=== PATIENT | female | born 2000 | race Asian ===

== ENCOUNTER 2020-02-29 14:06 | Emergency (ER) | payer BC ==
[2020-02-29 14:14] VITALS: BP 129/91; PULSE 115; RESP 16; TEMP 98.6
--- NOTE | 2020-02-29 15:00 | ED ---
General Adult HPI - General Chief complaint: ENT Stated complaint: difficulty breathing/hard time swallowing Time Seen by Provider: 02/29/20 14:16 Source: patient Mode of arrival: wheelchair Limitations: no limitations - History of Present Illness Initial comments: Patient is a 19-year-old female presenting to the emergency Department with complaints of progressive increase of swallowing foods for the past week. Patient was recently diagnosed with a chest mass that they're considering a thymoma versus lymphoma. Patient has been dealing with upper respiratory type symptoms and chest congestion since November and finally had a chest x-ray performed on February 20 which revealed a large mass. Patient then had a CT of the chest with contrast 2 days later and shows a large mass within the superior mediastinum. Patient does have an appointment with a thoracic surgeon from [facility] on Wednesday. She presents today for having an increase in trouble swelling. Foods. She is only been able to swallow liquids and very slowly. She continues to have a very hoarse voice has been present since November. She denies any recent fever, chills. She states she is able to breathe okay with some mild shortness of breath when she is trying to do certain activities. She denies any nausea, vomiting, diarrhea, abdominal pain, headaches, dizziness. She has no further complaints at this time. Review of Systems ROS Statement: Those systems with pertinent positive or pertinent negative responses have been documented in the HPI. ROS Other: All systems not noted in ROS Statement are negative. Past Medical History Additional Past Medical History / Comment(s): [place] History of Any Multi-Drug Resistant Organisms: None Reported Past Surgical History: No Surgical Hx Reported Past Psychological History: No Psychological Hx Reported Smoking Status: Never smoker Past Alcohol Use History: None Reported Past Drug Use History: None Reported General Exam - General Exam Comments Initial Comments: GENERAL: Well-appearing, well-nourished and in no acute distress. HEAD: Atraumatic, normocephalic. EYES: Pupils equal round and reactive to light, extraocular movements intact, sclera anicteric, conjunctiva are normal. ENT: TMs normal, nares patent, oropharynx clear without exudates. Moist mucous membranes. NECK: Normal range of motion, supple without lymphadenopathy or JVD. LUNGS: Breath sounds clear to auscultation bilaterally and equal. No wheezes rales or rhonchi. HEART: Regular rate and rhythm without murmurs, rubs or gallops. ABDOMEN: Soft, nontender, normoactive bowel sounds. No guarding, no rebound. No masses appreciated. : Deferred EXTREMITIES: Normal range of motion, no pitting or edema. No clubbing or cyanosis. NEUROLOGICAL: Normal speech, normal gait. PSYCH: Normal mood, normal affect. SKIN: Warm, Dry, normal turgor, no rashes or lesions noted. Limitations: no limitations Course Vital Signs 02/29/20 14:10 Temperature 98.6 F Pulse Rate 115 H Respiratory 16 Rate Blood Pressure 129/91 O2 Sat by Pulse 98 Oximetry Medical Decision Making - Medical Decision Making Patient is a 19-year-old female here for a progressive increase in trouble swallowing. Patient has recent chest x-ray and CT of the chest performed at another hospital that shows a large mass within the superior mediastinum, differentials include lymphoma, thymoma. Patient does have an appointment with a thoracic surgeon from [facility] on Wednesday. Patient's lung yanez sound normal. Patient has been in the room, comfortable, no trouble breathing. Soft tissue x-ray of the neck shows a patent airway, soft tissue structures within normal limits, as well as prominence of the upper mediastinum. Discussed these findings with the patient and the patient's mother. We discussed continuing with liquid diet as well as very soft foods. Patient is comfortable with being discharged and will follow up with her surgeon on Wednesday. Return parameters were discussed with the patient and the patient's mother and they both verbalized understanding. Case discussed with Dr. Mccarty. Disposition Clinical Impression: Mass of mediastinum, Trouble swallowing Disposition: HOME SELF-CARE Condition: Stable Instructions (If sedation given, give patient instructions): Full Liquid Diet (DC) Additional Instructions: Please return to the Emergency Department if symptoms worsen or any other concerns. Continue with liquid diet, very soft foods. Follow up with surgeon on Wednesday as discussed. Is patient prescribed a controlled substance at d/c from ED?: No Referrals: Freddy Benítez MD [Primary Care Provider] - 1-2 days
--- NOTE | 2020-02-29 15:15 | XR ---
EXAMINATION TYPE: XR soft tissue neck DATE OF EXAM: 02/29/2020 COMPARISON: NONE HISTORY: Difficulty swallowing TECHNIQUE: 2 views submitted FINDINGS: Prevertebral soft tissue structures within normal limits. Epiglottis normal. Visualized osseous structures intact. There is marked prominence of the upper medi astinum. IMPRESSION: 1. Airway appears patent. However, there is marked prominence of the upper mediastinum CT of the neck and chest is recommended.
== END 2020-02-29 15:39 | disposition home or self-care (01) ==
LOC: EC 14:06
DX: J98.59 Other diseases of mediastinum, not elsewhere classified (principal); R13.10 Dysphagia, unspecified; R06.00 Dyspnea, unspecified; R09.89 Other specified symptoms and signs involving the circulatory and respiratory systems; Z85.238 Personal history of other malignant neoplasm of thymus
CPT/HCPCS: 70360; 99284

== ENCOUNTER 2020-06-10 12:24 | Emergency (ER) | payer BC, OTHER ==
[2020-06-10] MEDS ORDERED: SODIUM CHLORIDE 0.9% 1,000 ML IV STA (13:11)
[2020-06-10] MEDS ORDERED: CEFEPIME 2 GM in SODIUM CHLORIDE 0.9% 100 ML IVPB STA (13:36)
--- NOTE | 2020-06-10 14:21 | ED ---
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 Patient receives her care at [facility]. Recently had a port placed last week in her right chest wall. She sees Dr. Matthew out of [facility]. She currently received her fourth cycle of chemotherapy listed as 06/03/2020 (rituximab). Was on Bactrim this weekend after she received her treatment. Reports that yesterday she began having epigastric abdominal pain which radiates around her back. She has been taking Motrin Tylenol alternating for her fevers. Also reports to a productive cough. Similar symptoms were seen and her sister. She has been tested for Covid before each chemo treatment and reports that his been negative each time. Denies previous abdominal surgeries. No ripping or tearing sensation to her back. Denies any nausea or vomiting. No diarrhea, constipation, melenic stools or hematochezia. Has not had a menstrual cycle in 1 year due to hormonal treatment. No abnormal vaginal discharge. No previous abdominal surgeries. No other alleviating, Percepting or modifying factors - Related Data Allergies Allergy/AdvReac Type Severity Reaction Status Date / Time No Known Allergies Allergy Verified 06/10/20 12:40 Review of Systems ROS Statement: Those systems with pertinent positive or pertinent negative responses have been documented in the HPI. ROS Other: All systems not noted in ROS Statement are negative. Past Medical History Past Medical History: Cancer Additional Past Medical History / Comment(s): [place], B-cell lyphoma. History of Any Multi-Drug Resistant Organisms: None Reported Past Surgical History: No Surgical Hx Reported Additional Past Surgical History / Comment(s): port to right chest. Past Psychological History: No Psychological Hx Reported Smoking Status: Current every day smoker Past Alcohol Use History: None Reported Past Drug Use History: None Reported General Exam Limitations: no limitations General appearance: alert, in no apparent distress Head exam: Present: atraumatic, normocephalic, normal inspection Eye exam: Present: normal appearance, PERRL, EOMI. Absent: scleral icterus, conjunctival injection, periorbital swelling ENT exam: Present: normal exam, mucous membranes moist, other (nasal congestion) Neck exam: Present: normal inspection. Absent: tenderness, meningismus, lymphadenopathy Respiratory exam: Present: normal lung sounds bilaterally. Absent: respiratory distress, wheezes, rales, rhonchi, stridor Cardiovascular Exam: Present: normal rhythm, tachycardia, normal heart sounds. Absent: systolic murmur, diastolic murmur, rubs, gallop, clicks GI/Abdominal exam: Present: soft, tenderness (epigastric ), normal bowel sounds. Absent: distended, guarding, rebound, rigid Extremities exam: Present: normal inspection, full ROM, normal capillary refill. Absent: tenderness, pedal edema, joint swelling, calf tenderness Back exam: Present: normal inspection Neurological exam: Present: alert, oriented X3, CN II-XII intact Psychiatric exam: Present: normal affect, normal mood Skin exam: Present: warm, dry, intact, normal color. Absent: rash Course Vital Signs 06/10/20 06/10/20 06/10/20 12:35 15:29 18:31 Temperature 100.6 F H 99.8 F H Pulse Rate 121 H 110 H 86 Respiratory 18 16 16 Rate Blood Pressure 105/73 106/69 112/76 O2 Sat by Pulse 100 100 96 Oximetry - Reevaluation(s) Reevaluation #1: Pediatric oncology fellow has been paged 06/10/20 16:35 Medical Decision Making - Medical Decision Making Upon arrival the patient is placed into room 24. A thorough history and physical exam was performed. Patient is febrile upon presentation with 100.6 temp. I did discuss the case with the pediatric hematology oncology nurse on- call. They did transfer the protocol for febrile neutropenia. The patient's port was accessed. We did obtain blood cultures. Laboratory studies were conducted. She is complaining of epigastric abdominal pain and therefore was given 1500 mL bolus of normal saline and 1000 mg of Tylenol. Patient was also covered with 2 g of cefepime. Ever tracers remarkable for a white count of 0.2. Hemoglobin 9.5. Platelets of 56. He wrecked approaching 159. Urinalysis shows 1+ ketones with rare bacteria. Chest x-ray was performed because of the patient's upper respiratory symptoms which is clear for any infection area and ultrasound of the patient's abdomen demonstrates no significant abnormalities. CT of the patient's abdomen and pelvis demonstrates some minimal patchy densities noted in the posterior right lung base. Retained fecal debris throughout distributional the right colon. The patient is reevaluated. Does have improvement in her heart rate and temp. Pain has been improved. I did discuss the diagnosis, differential and treatment options. I did recommend hospital admission for neutropenic fever. Mother does request that the patient be transferred to [facility] as this is where he receives his care. I did page the on-call hematology/oncology fellow. I also called and discussed the case with Dr. Lang, the ER doc in the emergency room and who accepts transfer the patient. He would like the patient be a direct admission. The ine is made aware of this. The pediatric heme/onc fellow does call me back and I discussed the case with him. Patient will be transferred by ambulance. She did remain in stable condition and was transported - Lab Data Result diagrams: 06/10/20 13:17 06/10/20 13:17 Lab Results 06/10/20 06/10/20 06/10/20 Range/Units 13:17 13:17 13:17 WBC 0.2 L* (4.0-11.0) k/uL RBC 3.08 L (3.80-5.40) m/uL Hgb 9.5 L (11.4-16.0) gm/dL Hct 27.9 L (34.0-46.0) % MCV 90.6 (80.0-100.0) fL MCH 30.7 (25.0-35.0) pg MCHC 33.9 (31.0-37.0) g/dL RDW 14.8 (11.5-15.5) % Plt Count 56 L (150-450) k/uL Differential Comment Manual Slide Review Performed PT 11.3 (9.0-12.0) sec INR 1.1 (<1.2) APTT 30.3 H (22.0-30.0) sec Sodium (137-145) mmol/L Potassium (3.5-5.1) mmol/L Chloride (98-107) mmol/L Carbon Dioxide (22-30) mmol/L Anion Gap mmol/L BUN (7-17) mg/dL Creatinine (0.52-1.04) mg/dL Est GFR (CKD-EPI)AfAm (>60 ml/min/1.73 sqM) Est GFR (CKD-EPI)NonAf (>60 ml/min/1.73 sqM) Glucose (74-99) mg/dL Plasma Lactic Acid Filiberto (0.7-2.0) mmol/L Calcium (8.4-10.2) mg/dL Total Bilirubin (0.2-1.3) mg/dL AST (14-36) U/L ALT (4-34) U/L Alkaline Phosphatase (38-126) U/L C-Reactive Protein (<10.0) mg/L Total Protein (6.3-8.2) g/dL Albumin (3.5-5.0) g/dL Lipase (23-300) U/L Urine Color Yellow Urine Appearance Cloudy H (Clear) Urine pH 8.5 H (5.0-8.0) Ur Specific [place] 1.030 (1.001-1.035) Urine Protein 2+ H (Negative) Urine Glucose (UA) Negative (Negative) Urine Ketones 1+ H (Negative) Urine Blood Negative (Negative) Urine Nitrite Negative (Negative) Urine Bilirubin Negative (Negative) Urine Urobilinogen 2.0 (<2.0) mg/dL Ur Leukocyte Esterase Negative (Negative) Urine RBC 2 (0-5) /hpf Urine WBC 3 (0-5) /hpf Ur Squamous Epith Cells 3 (0-4) /hpf Urine Bacteria Rare H (None) /hpf Urine Mucus Few H (None) /hpf Urine HCG, Qual (Not Detectd) 06/10/20 06/10/20 06/10/20 Range/Units 13:17 13:17 13:17 WBC (4.0-11.0) k/uL RBC (3.80-5.40) m/uL Hgb (11.4-16.0) gm/dL Hct (34.0-46.0) % MCV (80.0-100.0) fL MCH (25.0-35.0) pg MCHC (31.0-37.0) g/dL RDW (11.5-15.5) % Plt Count (150-450) k/uL Differential Comment Manual Slide Review PT (9.0-12.0) sec INR (<1.2) APTT (22.0-30.0) sec Sodium 134 L (137-145) mmol/L Potassium 4.2 (3.5-5.1) mmol/L Chloride 99 (98-107) mmol/L Carbon Dioxide 25 (22-30) mmol/L Anion Gap 10 mmol/L BUN 11 (7-17) mg/dL Creatinine 0.76 (0.52-1.04) mg/dL Est GFR (CKD-EPI)AfAm >90 (>60 ml/min/1.73 sqM) Est GFR (CKD-EPI)NonAf >90 (>60 ml/min/1.73 sqM) Glucose 101 H (74-99) mg/dL Plasma Lactic Acid Filiberto 1.1 (0.7-2.0) mmol/L Calcium 9.0 (8.4-10.2) mg/dL Total Bilirubin 0.9 (0.2-1.3) mg/dL AST 18 (14-36) U/L ALT 21 (4-34) U/L Alkaline Phosphatase 63 (38-126) U/L C-Reactive Protein 159.1 H (<10.0) mg/L Total Protein 6.6 (6.3-8.2) g/dL Albumin 4.2 (3.5-5.0) g/dL Lipase 31 (23-300) U/L Urine Color Urine Appearance (Clear) Urine pH (5.0-8.0) Ur Specific [place] (1.001-1.035) Urine Protein (Negative) Urine Glucose (UA) (Negative) Urine Ketones (Negative) Urine Blood (Negative) Urine Nitrite (Negative) Urine Bilirubin (Negative) Urine Urobilinogen (<2.0) mg/dL Ur Leukocyte Esterase (Negative) Urine RBC (0-5) /hpf Urine WBC (0-5) /hpf Ur Squamous Epith Cells (0-4) /hpf Urine Bacteria (None) /hpf Urine Mucus (None) /hpf Urine HCG, Qual Not Detected (Not Detectd) - EKG Data EKG Comments: EKG demonstrates sinus tachycardia with a ventricular rate of 1:15. WI interval 132. QRS 80. QTC of 431. Inverted T-wave lead 3. No acute ST segment elevations. Disposition Clinical Impression: Abdominal pain, Fever, Pancytopenia, Chemotherapy induced neutropenia Disposition: OTHER INSTITUTION NOT DEFINED Condition: Serious Is patient prescribed a controlled substance at d/c from ED?: No Referrals: Freddy Benítez MD [Primary Care Provider] - 1-2 days - Out of Hospital Transfer - Req. Specs Out of Hospital Transfer - Requested Specifics: Other Non-Acute ([facility] - direct admission)
[2020-06-10 14:25] LABS: HCT 27.9 % (34.0-46.0); HGB 9.5 gm/dL (11.4-16.0); MCH 30.7 pg (25.0-35.0); MCHC 33.9 g/dL (31.0-37.0); MCV 90.6 fL (80.0-100.0); Mean Platelet Volume 8.1; RBC 3.08 m/uL (3.80-5.40); RDW 14.8 % (11.5-15.5)
[2020-06-10 14:30] LABS: WBC 0.2 k/uL (4.0-11.0)
--- NOTE | 2020-06-10 14:33 | XR ---
EXAMINATION TYPE: XR chest 2V DATE OF EXAM: 06/10/2020 COMPARISON: NONE TECHNIQUE: PA and lateral views submitted. HISTORY: cough FINDINGS: The lungs are clear and there is no pneumothorax, pleural effusion, or focal pneumonia. [facility] mahad venegas noted. IMPRESSION: 1. No acute process.
[2020-06-10 14:37] LABS: ALT 21 U/L (4-34); AST 18 U/L (14-36); African American GFR (CKD) >90 (>60 ml/min/1.73 sqM); Albumin 4.2 g/dL (3.5-5.0); Alkaline Phosphatase 63 U/L (38-126); Anion Gap 10 mmol/L; Blood Urea Nitrogen 11 mg/dL (7-17); Carbon Dioxide 25 mmol/L (22-30); Chloride 99 mmol/L (98-107); Glucose 101 mg/dL (74-99); Lipase 31 U/L (23-300); Non-African American GFR(CKD) >90 (>60 ml/min/1.73 sqM); Potassium 4.2 mmol/L (3.5-5.1); Sodium 134 mmol/L (137-145); Total Bilirubin 0.9 mg/dL (0.2-1.3); Total Protein 6.6 g/dL (6.3-8.2)
[2020-06-10 14:46] LABS: Platelet Count 56 k/uL (150-450)
[2020-06-10 14:57] LABS: C Reactive Protein 159.1 mg/L (<10.0)
[2020-06-10 14:59] LABS: INR 1.1 (<1.2); Partial Thromboplastin Time 30.3 sec (22.0-30.0); Prothrombin Time 11.3 sec (9.0-12.0)
[2020-06-10] MEDS ORDERED: ACETAMINOPHEN TAB 500 MG TAB PO STA (15:15)
[2020-06-10 15:32] VITALS: RESP 16; TEMP 99.8
--- NOTE | 2020-06-10 15:42 | US ---
EXAMINATION TYPE: US abdomen limited DATE OF EXAM: 06/10/2020 COMPARISON: NONE CLINICAL HISTORY: right upper quadrant pain. History of thymoma, b-cell lymphoma EXAM MEASUREMENTS: Liver Length: 13.8 cm Gallbladder Wall: 0.2 cm CBD: 0.2 cm Right Kidney: 9.9 x 4.0 x 4.6 cm Pancreas: Obscured by bowel gas Liver: No evident mass. Gallbladder: wnl Evidence for sonographic Arenas's sign: No CBD: wnl as visualized Right Kidney: No hydronephrosis or masses seen IMPRESSION: Exam is limited. No significant abnormalities evident.
[2020-06-10 15:54] LABS: Appearance,Urine Cloudy (Clear); Bacteria,Urine Rare /hpf; Bilirubin,Urine Negative (Negative); Blood,Urine Negative (Negative); Color,Urine Yellow; Glucose,Urine (UA) Negative (Negative); Ketones,Urine 1+ (Negative); Leukocyte Esterase,Urine Negative (Negative); Mucus,Urine Few /hpf; Nitrite,Urine Negative (Negative); PH, Urine 8.5 (5.0-8.0); Protein,Urine 2+ (Negative); RBC,Urine 2 /hpf (0-5); Squamous Epithelial Cell,Urine 3 /hpf (0-4); WBC,Urine 3 /hpf (0-5)
[2020-06-10] MEDS ORDERED: SODIUM CHLORIDE 0.9% 500 ML 500 ML IV ONE (15:56)
--- NOTE | 2020-06-10 16:23 | CT ---
EXAMINATION TYPE: CT abdomen pelvis w con DATE OF EXAM: 06/10/2020 COMPARISON: Ultrasound same date HISTORY: Abdominal pain radiating into back, fever and cough. Hx of B cell lymphoma. Recent port plac ed x2 weeks ago. CT DLP: 873.8 mGycm Automated exposure control for dose reduction was used. TECHNIQUE: Helical acquisition of images from the lung bases through the pelvis have been completed. CONTRAST: Performed without Oral Contrast and with IV Contrast, patient injected with 100ml mL of Isovue 300. FINDINGS: Along the anterior abdominal wall there is some increased attenuation, skin thickening poss ibly due to subcutaneous injections LUNG BASES: Minimal patchy density noted on image #1 and 2 the posterior right lung base is of questi onable clinical significance in the posterior lung base. AORTA: No significant abnormality is appreciated. LIVER/GB: No significant abnormality is appreciated. PANCREAS: No significant abnormality is seen. SPLEEN: No significant abnormality is seen. ADRENALS: No significant abnormality is seen. KIDNEYS: No significant abnormality is seen. REPRODUCTIVE ORGANS: No significant abnormality is seen BOWEL: Retained fecal debris is present throughout the distribution of the right colon, the appendix is unremarkable. FREE AIR: No Free Air visible. ASCITES: None visible. PELVIC ADENOPATHY: None visualized. RETROPERITONEAL ADENOPATHY: No Retroperitoneal Adenopathy visible. URINARY BLADDER: No significant abnormality is seen. OSSEOUS STRUCTURES: No significant abnormality is seen. IMPRESSION: NONSPECIFIC FINDINGS OF QUESTIONABLE CLINICAL SIGNIFICANCE
[2020-06-10 18:33] VITALS: BP 112/76; PULSE 86
== END 2020-06-10 18:31 | disposition other institution (70) ==
LOC: EC 12:24
DX: C85.10 Unspecified B-cell lymphoma, unspecified site (principal); D70.1 Agranulocytosis secondary to cancer chemotherapy; R50.81 Fever presenting with conditions classified elsewhere; J98.4 Other disorders of lung; K59.00 Constipation, unspecified; F17.200 Nicotine dependence, unspecified, uncomplicated; Z95.828 Presence of other vascular implants and grafts
CPT/HCPCS: 99285; 96365; 36415; 93005; 80053; 83605; 83690; 85025; 85610; 85730; 86140; 81001; 81025; 87040; 71046; 76705; 74177; J0692; Q9967

== ENCOUNTER 2023-06-10 20:44 | Emergency (ER) | payer BC, OTHER ==
[2023-06-10 22:05] VITALS: TEMP 98.5
--- NOTE | 2023-06-10 23:06 | ED ---
General Adult HPI - General Chief complaint: Vaginal Bleeding Stated complaint: On period for 6 months Time Seen by Provider: 06/10/23 22:24 Source: patient, RN notes reviewed Mode of arrival: ambulatory Limitations: no limitations - History of Present Illness Initial comments: 23-year-old biological female who identifies as male presents the emergency department the chief complaint of vaginal bleeding. Patient reports that they are currently receiving Depakote shot and testosterone injections. She reports constant daily vaginal bleeding that is slight. She denies any clots passing. Denies dizziness, lightheadedness, fatigue, she is scheduled to have a follow-up ultrasound in one week however she did not want to wait that long. - Related Data Allergies Allergy/AdvReac Type Severity Reaction Status Date / Time No Known Allergies Allergy Verified 06/10/23 22:00 Review of Systems ROS Statement: Those systems with pertinent positive or pertinent negative responses have been documented in the HPI. ROS Other: All systems not noted in ROS Statement are negative. Past Medical History Past Medical History: Cancer Additional Past Medical History / Comment(s): [place], B-cell lyphoma. History of Any Multi-Drug Resistant Organisms: None Reported Past Surgical History: No Surgical Hx Reported Additional Past Surgical History / Comment(s): port to right chest, removed in 2021 Past Psychological History: Anxiety, Depression Smoking Status: Vaper Past Alcohol Use History: Occasional Past Drug Use History: None Reported General Exam - General Exam Comments Initial Comments: General: Alert, in no acute distress Head: atraumatic normocephalic. Eyes PERRL, EOMI intact, mucous membranes moist Respiratory: Lungs clear to auscultation bilaterally Cardiovascular: Heart rate regular rate and rhythm Abdominal: Soft without guarding or rebound Extremities: Normal inspection with full range of motion and normal capillary refill Neuroogic: alert and oriented 3, CN II-XII intact, able to ambulate with steady gait Skin: warm dry and intact with normal color Limitations: no limitations Course Vital Signs 06/10/23 06/10/23 21:53 23:30 Temperature 98.5 F Pulse Rate 113 H 81 Respiratory 22 18 Rate Blood Pressure 166/129 148/99 O2 Sat by Pulse 98 99 Oximetry Medical Decision Making - Medical Decision Making Was pt. sent in by a medical professional or institution (, PA, RADIOLOGIST, urgent care, hospital, or long-term...) When possible be specific @ -[No] Did you speak to anyone other than the patient for history (EMS, parent, family, police, friend...)? What history was obtained from this source @ -[No] Did you review nursing and triage notes (agree or disagree)? Why? @ -[I reviewed and agree with nursing and triage notes] Were old charts reviewed (outside hosp., previous admission, EMS record, old EKG, old radiological studies, urgent care reports/EKG's, long-term records)? Report findings @ -[No old charts were reviewed] Differential Diagnosis (chest pain, altered mental status, abdominal pain women, abdominal pain men, vaginal bleeding, weakness, fever, dyspnea, syncope, headache, dizziness, GI bleed, back pain, seizure, CVA, palpatations, mental health, musculoskeletal)? @ -[not applicable] EKG interpreted by me (3pts min.). @ -[As above] X-rays interpreted by me (1pt min.). @ -[None done] CT interpreted by me (1pt min.). @ -[None done] U/S interpreted by me (1pt. min.). @ -[None done] What testing was considered but not performed or refused? (CT, X-rays, U/S, labs)? Why? @ -[None] What meds were considered but not given or refused? Why? @ -[None] Did you discuss the management of the patient with other professionals (professionals i.e. , PA, RADIOLOGIST, lab, RT, psych nurse, social scientist, cutting and printing machine operator, teacher, ground intelligence officer, shoe caser)? Give summary @ -[No] Was smoking cessation discussed for >3mins.? @ -[No] Was critical care preformed (if so, how long)? @ -[No] Were there social determinants of health that impacted care today? How? (Homelessness, low income, unemployed, alcoholism, drug addiction, transportation, low edu. Level, literacy, decrease access to med. care, half-way, rehab)? @ -[No] Was there de-escalation of care discussed even if they declined (Discuss DNR or withdrawal of care, Hospice)? DNR status @ -[No] What co-morbidities impacted this encounter? (DM, HTN, Smoking, COPD, CAD, Cancer, CVA, ARF, Chemo, Hep., AIDS, mental health diagnosis, sleep apnea, morbid obesity)? @ -[None] Was patient admitted / discharged? Hospital course, mention meds given and route, prescriptions, significant lab abnormalities, going to OR and other pertinent info. @ -Discharged. This is a pleasant 23-year-old biological female who identifies as male who presents the emergency department with vaginal bleeding. Genitourinary history and physical exam. Vital signs stable. Heart rate regular rate and rhythm, lungs clear to auscultation bilaterally abdomen soft nontender. She offered laboratory studies which she refused. Patient was discharged home in stable condition. Return precautions were discussed. Case discussed with Dr. Ozuna [facility] who agrees with plan of care Undiagnosed new problem with uncertain prognosis? @ -[No] Drug Therapy requiring intensive monitoring for toxicity (Heparin, Nitro, Insulin, Cardizem)? @ -[No] Were any procedures done? @ -[No] Diagnosis/symptom? @ -Vaginal Bleeding Acute, or Chronic, or Acute on Chronic? @ -Acute Uncomplicated (without systemic symptoms) or Complicated (systemic symptoms)? @ -Uncomplicated Side effects of treatment? @ -[No] Exacerbation, Progression, or Severe Exacerbation? @ -[No] Poses a threat to life or bodily function? How? (Chest pain, [place], [place], pneumonia, PE, COPD, DKA, ARF, appy, cholecystitis, CVA, Diverticulitis, Homicidal, Suicidal, threat to staff... and all critical care pts) @ -Low likelihood Disposition Clinical Impression: Vaginal bleeding Disposition: HOME SELF-CARE Condition: Stable Additional Instructions: Monitor symptoms closely Please return to the nearest emergency department if worsening vaginal bleeding, dizziness, lightheadedness, shortness of develop Is patient prescribed a controlled substance at d/c from ED?: No Referrals: Freddy Benítez MD [Primary Care Provider] - 1-2 days Time of Disposition: 23:07
[2023-06-10 23:36] VITALS: BP 148/99; PULSE 81; RESP 18
== END 2023-06-10 23:33 | disposition home or self-care (01) ==
LOC: EC 20:44
DX: N93.9 Abnormal uterine and vaginal bleeding, unspecified (principal); F17.290 Nicotine dependence, other tobacco product, uncomplicated
CPT/HCPCS: 99283

== ENCOUNTER → 2023-06-28 | Outpatient (CLI) | payer BC ==
--- NOTE | 2023-06-28 14:15 | US ---
EXAMINATION TYPE: US pelvic complete DATE OF EXAM: 06/28/2023 COMPARISON: NONE CLINICAL INDICATION: Female, 23 years old with history of N92.6 IRREGULAR MENSTRUATION, UN; transgend er female to male, on testosterone x 5 years TECHNIQUE: Transabdominal (TA). Transabdominal sonographic images of the pelvis were acquired. Date of LMP: some time in December or January EXAM MEASUREMENTS: Uterus: 7.7x3.0x5.8 cm Endometrial Stripe: 0.3 cm Right Ovary: 3.0x1.6x1.9 cm Left Ovary: 2.6x1.1x2.4 cm 1. Uterus: Anteverted wnl 2. Endometrium: wnl 3. Right Ovary: wnl 4. Left Ovary: wnl 5. Bilateral Adnexa: wnl 6. Posterior cul-de-sac: wnl IMPRESSION: 1. No evidence for acute process. 2. Endometrium within normal normal limits for thickness.
== END | disposition home or self-care (01) ==
LOC: RADUSWWP 13:29
PROVIDERS: ATTEND Pediatrics
DX: N92.6 Irregular menstruation, unspecified (principal); F64.0 Transsexualism
CPT/HCPCS: 76856